=== PATIENT | female | born 1950 | race Caucasian/White ===

== ENCOUNTER → 2016-07-30 | Outpatient (CLI) | payer BC | LOC: MC.RAD 08:45 | DX: Z12.31 Encounter for screening mammogram for malignant neoplasm of breast (principal) ==

== ENCOUNTER → 2017-08-19 | Outpatient (CLI) | payer MEDICARE, OTHER | LOC: MC.RAD 07:28 | DX: Z12.31 Encounter for screening mammogram for malignant neoplasm of breast (principal) ==

== ENCOUNTER → 2018-06-14 | Outpatient (CLI) | payer MEDICARE, OTHER | LOC: ZCOL.LAB 16:20 | DX: H92.11 Otorrhea, right ear (principal) ==

== ENCOUNTER → 2020-12-18 | Outpatient (CLI) | payer MEDICARE, OTHER ==
[~2020-12-18] MED LIST: ASPIRIN E.C. 8181 MG PO; CALCIUM 600 PLU1 TAB PO; COZAAR 50MG50 MG/TAB PO; DIFLUCAN150 MG PO; DITROPAN XL 5MG5 M1 PO; DITROPAN XL10 MG PO; FOLIC ACID 11 MG/TA1 PO; FOSAMAX 70MG TA70 MG PO; GARLIC100 MG PO; HCTZ 25MG TAB25 MG PO; LEVOXYL0.05 MG PO; LIPITOR20 MG PO; NAPROXEN 3375 MG/TAB PO; NITROSTAT0.4 MG/TAB SL; NORCO 325 MG-51 TAB PO; OMEGA-31 SGL PO; ONE-A-DAY ESSE1 EACH PO; OTREXUP25 MG/0.4 SQ; PRILOSEC 20MG20 MG PO; VITAMIN E 400 U4001 PO; ZYRTEC10MGSGL PO
== END ==
LOC: MC.RAD 09:41
DX: R92.8 Other abnormal and inconclusive findings on diagnostic imaging of breast (principal); R92.0 Mammographic microcalcification found on diagnostic imaging of breast

== ENCOUNTER → 2021-01-02 | Outpatient (CLI) | payer MEDICARE, OTHER | LOC: MC.RAD 06:54 | DX: R92.8 Other abnormal and inconclusive findings on diagnostic imaging of breast (principal) | CPT/HCPCS: 32605; C1769 ==

== ENCOUNTER 2021-01-07 04:58 | Day surgery (SDC) | payer MEDICARE, OTHER ==
[~2021-01-07] VITALS: Ht 167.6 cm; Wt 88.2 kg
--- NOTE | 2021-01-07 05:10 | NUR ---
Patient ambulated to [facility] with a steady gait. is present in waiting room. Height and weight obtained. Vitals obtained. Consent signed. Medications reviewed. Warm blanket given. Non-slip socks on and call sewell is within reach. IV started in L FA on first attempt. See physical assessment. Will continue to monitor.
[2021-01-07] MEDS ORDERED: COZAAR 50MG50 MG/TAB PO (05:32)
[2021-01-07] MEDS ORDERED: DITROPAN XL10 MG PO (05:33)
[2021-01-07] MEDS ORDERED: LEVOXYL0.05 MG PO (05:33)
[2021-01-07] MEDS ORDERED: PRILOSEC 20MG20 MG PO (05:33)
[2021-01-07] MEDS ORDERED: DITROPAN XL 5MG5 M1 PO (05:34)
[2021-01-07] MEDS ORDERED: LIPITOR20 MG PO (05:35)
[2021-01-07] MEDS ORDERED: DIFLUCAN150 MG PO (05:35)
[2021-01-07] MEDS ORDERED: FOSAMAX 70MG TA70 MG PO (05:36)
[2021-01-07] MEDS ORDERED: NAPROXEN 3375 MG/TAB PO (05:37)
[2021-01-07] MEDS ORDERED: HCTZ 25MG TAB25 MG PO (05:37)
[2021-01-07] MEDS ORDERED: NITROSTAT0.4 MG/TAB SL (05:38)
[2021-01-07] MEDS ORDERED: ASPIRIN E.C. 8181 MG PO (05:38)
[2021-01-07] MEDS ORDERED: ZYRTEC10MGSGL PO (05:39)
[2021-01-07] MEDS ORDERED: OTREXUP25 MG/0.4 SQ (05:39)
[2021-01-07] MEDS ORDERED: VITAMIN E 400 U4001 PO (05:40)
[2021-01-07] MEDS ORDERED: CALCIUM 600 PLU1 TAB PO (05:41)
[2021-01-07] MEDS ORDERED: GARLIC100 MG PO (05:41)
[2021-01-07] MEDS ORDERED: ONE-A-DAY ESSE1 EACH PO (05:42)
[2021-01-07] MEDS ORDERED: OMEGA-31 SGL PO (05:42)
[2021-01-07] MEDS ORDERED: FOLIC ACID 11 MG/TA1 PO (05:43)
[2021-01-07 06:11] VITALS: BP 131/80; PULSE 102; TEMP 97.3
[2021-01-07] MEDS ORDERED: NORCO 325 MG-51 TAB PO (09:03)
[2021-01-07 09:20] VITALS: BP 122/75; PULSE 91; TEMP 97.5
--- NOTE | 2021-01-07 09:20 | NUR ---
The patient arrived back to [facility] from the recovery room at this time. The patient appears alert and oriented and denies any pain or nausea at this time. Post operative vital signs were started at this time. The patient agrees to try some water at this time. The patient's dressing to her right breast appears clean, dry and intact. The patient's was brought back to be at her bedside. Call light is within reach. The patient denies any further needs. Will continue to monitor the patient.
[2021-01-07 09:35] VITALS: BP 125/75; PULSE 90
--- NOTE | 2021-01-07 09:35 | NUR ---
The patient appears to be tolerating the water well. The patient denies wanting to try anyting further to eat or drink at this time. Vital signs appear stable. Call light remains within reach. Will continue to monitor the patient.
[2021-01-07 09:50] VITALS: BP 116/73; PULSE 92
--- NOTE | 2021-01-07 09:50 | NUR ---
The patient agrees to try a blueberry muffin and some coffee at this time. The patient's remains at her bedside. Will continue to monitor the patient.
[2021-01-07 10:05] VITALS: BP 112/72; PULSE 91
--- NOTE | 2021-01-07 10:08 | NUR ---
The patient appears to be tolerating the muffin well. The patient denies feeling the urge to void at this time. Will continue to monitor the patient.
[2021-01-07 10:35] VITALS: BP 114/81; PULSE 99
--- NOTE | 2021-01-07 10:40 | NUR ---
Patient ambulated to bathroom and voided successfully. Expressed desire to be discharged. Patient education material and discharge information reviewed at this time. Patient and verbalized understanding. Vitals obtained. IV discontinued at this time. Catheter tip intact, w/o redness or swelling noted. Patient states no dizziness. Will continue to monitor.
--- NOTE | 2021-01-07 11:12 | NUR ---
Patient escorted out via wheelchair with , by Padmaja ZHAO. has discharge paperwork and patient belongings. Patient has put her hearing device back in along with dentures. is driving and patient was transferred into his care at this time. States no further questions or concerns.
== END 2021-01-07 11:05 | disposition home or self-care (01) ==
LOC: SDCO 04:58
DX: D05.01 Lobular carcinoma in situ of right breast (principal); Z17.0 Estrogen receptor positive status [ER+]; I10 Essential (primary) hypertension; K21.9 Gastro-esophageal reflux disease without esophagitis; M81.0 Age-related osteoporosis without current pathological fracture; E78.2 Mixed hyperlipidemia; Z79.899 Other long term (current) drug therapy; Z79.83 Long term (current) use of bisphosphonates
CPT/HCPCS: A4648; J0690; J1100; J1885; J2250; J2405; J2704; J2795; J3010; J7120